=== PATIENT | male | born 1995 | race Caucasian/White ===

== ENCOUNTER → 2020-05-21 13:16 | Outpatient (BNVA) | payer SELFPAY | PROVIDERS: Visit Provider Internal Medicine | DX: Z76.89 Persons encountering health services in other specified circumstances (principal) ==

== ENCOUNTER 2020-11-14 10:37 | Outpatient (REF) | payer OTHER, SELFPAY ==
--- NOTE | ~2020-11-14 | US_ITS ---
EXAMINATION: US ABDOMEN COMPLETE CLINICAL INFORMATION: Left upper quadrant pain. COMPARISON: None TECHNIQUE: Real-time imaging of the abdominal viscera. FINDINGS: PANCREAS: Normal. ABDOMINAL AORTA: The proximal, mid, and distal segments are normal in caliber. INFERIOR VENA CAVA: Visualized portions are normal. LIVER: Normal. The liver is normal in size. The liver contour is normal. Parenchymal echogenicity is normal. No focal hepatic lesion. There is no intrahepatic biliary duct dilatation seen. GALLBLADDER: Normal. The gallbladder is physiologically distended without evidence of stones, sludge, polyps, wall thickening or pericholecystic fluid. COMMON BILE DUCT: Normal in caliber measuring 0.2 cm in diameter. RIGHT KIDNEY: Normal. No hydronephrosis. No renal calculi or focal parenchymal lesions. The kidney measures 11.5 cm in maximum dimension. LEFT KIDNEY: Normal. No hydronephrosis. No renal calculi or focal parenchymal lesions. The kidney measures 11.1 cm in maximum dimension. SPLEEN: Normal. The spleen measures 12.0 cm in maximum dimension. FREE FLUID: None. US/US abdomen complete IMPRESSION: Unremarkable examination.
== END 2020-11-14 10:38 | disposition home or self-care (01) ==
LOC: HO.HMGCX 10:37
PROVIDERS: PCP Registered Nurse; Visit Provider Registered Nurse
DX: R10.12 Left upper quadrant pain (principal)
CPT/HCPCS: 76700

== ENCOUNTER 2021-04-30 06:55 | Outpatient (REF) | payer OTHER, SELFPAY ==
--- NOTE | ~2021-04-30 | CT_ITS ---
EXAMINATION: CT ABDOMEN AND PELVIS WITH CONTRAST CLINICAL INFORMATION: Left upper quadrant pain COMPARISON: Previous abdominal ultrasound October 2020 TECHNIQUE: Multidetector volumetric images were obtained from the superior aspect of the liver through the pubic symphysis following administration 85 mL of Omnipaque 350 intravenous contrast. Sagittal and coronal reformatted images were obtained on the technologist's workstation. Oral contrast: Yes This CT examination was performed using dose optimization techniques as appropriate, variously including the following: *Automated exposure control *Adjustment of mA and/or kV according to patient size (this includes techniques or standardized protocols for targeted exams where dose is matched to indication/reason for exam; i.e. extremities or head) *Use of iterative reconstruction technique DLP: 421 mGy-cm FINDINGS: LUNG BASES: The visualized lung bases are unremarkable. LIVER, GALLBLADDER, AND BILIARY TREE: The liver is normal in size, shape, and attenuation. No focal hepatic lesion or biliary ductal dilatation is present. The gallbladder is unremarkable with no evidence of radiopaque gallstones, gallbladder wall thickening, or obvious pericholecystic inflammatory changes. PANCREAS: Unremarkable. SPLEEN: Unremarkable. ADRENAL GLANDS: Unremarkable. KIDNEYS AND URETERS: The kidneys are normal in size, shape, and attenuation. No hydronephrosis, hydroureter, or calculi seen. No perinephric stranding. BLADDER: Unremarkable. GASTROINTESTINAL TRACT: The small and large bowel are unremarkable. The appendix is unremarkable. ABDOMINAL WALL: No significant hernia is appreciated. LYMPH NODES: Normal. VASCULAR: Unremarkable. PELVIC VISCERA: Unremarkable. OSSEOUS STRUCTURES: Unremarkable. CT/CT abdomen pelvis w con IMPRESSION: Unremarkable exam. Fleischner guidelines were followed.
[2021-04-30] MEDS: iohexoL 350 MG/ML 100 ML INFUS..BTL IV (09:03)
== END 2021-04-30 06:56 | disposition home or self-care (01) ==
LOC: HO.CT 06:55
PROVIDERS: PCP Internal Medicine; Visit Provider Internal Medicine
DX: R10.12 Left upper quadrant pain (principal)
CPT/HCPCS: 74177; Q9967

== ENCOUNTER 2022-04-17 12:15 | Day surgery (SDC) | payer OTHER, SELFPAY ==
--- NOTE | 2022-04-16 11:30 | P.CONAN_ITS ---
Documented by User: Daya Zelaya NP 04/16/22 11:30 HPI - Anesthesia Eval Consult details Narrative: 27yo M for Colonoscopy [facility] Surgical History Surgical History (Updated 04/16/22 @ 08:18 by Terri Henderson, EVA) Hx of hand surgery Social History Social History Patient Tobacco Use Status: Never used Tobacco Are you DNR?: No Advance Directives: No Advance Directives Information Provided: Yes Meds Allergies Allergy/AdvReac Type Severity Reaction Status Date / Time No Known Allergies Allergy Verified 04/16/22 08:17 Home Medications Medication Instructions Recorded Confirmed Last Taken Type No Known Home Meds 04/16/22 04/16/22 Unknown History Exam Exam Date and Time: April 16, 2022 1130 Assessment and Plan Assessment Anesthesia Assessment: Chart Reviewed Documented by User: Rosemary Shafer MD 04/17/22 12:38 [facility] Family History Family history of problems with anesthesia: No Surgical History Surgical History (Updated 04/16/22 @ 08:18 by Terri Henderson RN) Hx of hand surgery History of Problems with Anesthesia: No Social History Social History Patient Tobacco Use Status: Never used Tobacco Are you DNR?: No Advance Directives: No Advance Directives Information Provided: Yes Meds Allergies Allergy/AdvReac Type Severity Reaction Status Date / Time No Known Allergies Allergy Verified 04/16/22 08:17 Home Medications Medication Instructions Recorded Confirmed Last Taken Type No Known Home Meds 04/16/22 04/16/22 Unknown History Exam Airway Mallampati Class: II TM Dist: >3cm Neck ROM: Full Heart: rrr Lungs: cta Assessment and Plan Assessment Anesthesia Assessment: Anesthesia Plan Discussed Final Anesthetic Review Family History of Problems with Anesthesia: No History of Problems with Anesthesia: No NPO: Yes ASA Class: I Final Preanesthetic Review: No Changes in Pt Med Stat, Meds/Allgs Chart Reviewed and Consent Obtained/Reviewed Patient Risk: Intermediate Procedure Risk: Intermediate Anesthetic Plan Anesthetic Plan: MAC: Disposition: Standard PACU
[2022-04-17 06:33] VITALS: BMI 27.7
[2022-04-17 12:25] VITALS: BP 134/91; PULSE 78; RESP 16; TEMP 36.6; O2SAT 99
[2022-04-17] MEDS: Lactated Ringers 1,000 ML 100 ML IVCONT (12:36)
[2022-04-17 13:33] VITALS: BP 95/51; PULSE 86; RESP 16; TEMP 36.3; O2SAT 98
--- NOTE | 2022-04-17 13:36 | PM.OP ---
Brief Operative Note Date of Service: 04/17/22 Pre-op diagnosis: Change in Bowel habits, LLQ abdominal discomfort Post-op diagnosis: same Procedure: Colonoscopy to the cecum and TI Surgeon: Ryne Larry Anesthesia: MAC Was an [employer] Business Analyst used for this Procedure?: No Estimated blood loss (mL): 0 Pathology: none sent Condition: stable Disposition: PACU
[2022-04-17 13:48] VITALS: BP 126/64; PULSE 80; RESP 16; TEMP 36.3; O2SAT 99
--- NOTE | 2022-04-17 23:48 | OP_ITS ---
SURGEON: Ryne Larry MD INDICATIONS: The patient presents for evaluation of change in bowel habits and abdominal discomfort. Full consent has been obtained from him for this, including risks of bleeding and perforation. PREOPERATIVE DIAGNOSIS: Abdominal discomfort and change in bowel habits. POSTOPERATIVE DIAGNOSIS: PROCEDURE PERFORMED: Colonoscopy to the cecum and terminal ileum. ESTIMATED BLOOD LOSS: COMPLICATIONS: ANESTHESIA: Monitored anesthesia care. ASSISTANTS: SPECIMENS: POSTOPERATIVE DIAGNOSES: Abdominal discomfort and change in bowel habits, internal hemorrhoids. DESCRIPTION OF PROCEDURE: The patient was placed in the left lateral decubitus position. The digital rectal exam revealed no abnormalities. The Olympus video pediatric colonoscope was entered into the rectum and advanced easily to the cecum. Once in the cecum, I did identify a normal-appearing cecal pouch with appendiceal orifice and a normal-appearing ileocecal valve. The terminal ileum was cannulated and appeared normal. The scope was withdrawn back in the colon. The entire cecum and ileocecal valve appeared normal. The scope was slowly withdrawn assessing all mucosal surfaces carefully. Preparation was excellent. I did not visualize any sign of polyps, colitis, nor angiodysplasia. I did not appreciate any diverticular disease. In the rectum, scope was retroflexed visualizing small internal hemorrhoids, but no other pathology. The rectal mucosa appeared normal. The scope was straightened and withdrawn from the patient. He tolerated the procedure well and was returned to the recovery area in stable condition. IMPRESSION: Internal hemorrhoids, otherwise normal colonoscopy. PLAN: At this point, the patient has had an extensive workup including CT scan, ultrasound, laboratories and today's colonoscopy. No abnormalities have been found. I have reviewed with him in the past that I do suspect this is a mild irritable bowel syndrome and he should continue his fiber supplement that he takes on a regular basis with plenty of fluids. If he is otherwise stable, he will see me on a p.r.n. basis. He would not need another colonoscopy until age 46 for screening purposes. This has been discussed with his mother. MD SHARI Morillo/MARIANA / [phone] MTDRachel
== END 2022-04-17 14:25 | disposition home or self-care (01) ==
PROVIDERS: PCP Internal Medicine; Visit Provider Internal Medicine
PROC: 0DJD8ZZ Inspection of Lower Intestinal Tract, Via Natural or Artificial Opening Endoscopic (ICD-10-PCS; CPT 45378; principal; 2022-04-17 13:00)
DX: R19.4 Change in bowel habit (principal); K64.8 Other hemorrhoids; R10.9 Unspecified abdominal pain
CPT/HCPCS: 45378; J2250

== ENCOUNTER 2024-07-18 15:18 | Outpatient (REF) | payer SELFPAY ==
--- OUTSIDE RECORDS SUMMARY | 2024-07-18 16:12 | XMS_ITS ---
Author Organization [facility] Address [address] [place] [address] Care Team Providers Care Cloth Cutter Name Role Phone Jeremie Pate MD Primary Care Provider Ryne Mcmullen [phone] ALLERGIES No Known Allergies REASON FOR VISIT Patient presents today for abdominal pain SOCIAL HISTORY Tobacco Use: Social History Observation Description Date Details (start date - stop date) Never Smoker NA - NA Sex Assigned At : Social History Observation Description Sex Assigned At Unknown Tobacco Use/Smoking Question Answer Notes Patient is a nonsmoker Alcohol Screen Question Answer Notes Did you have a drink contain ing alcohol in the past year? Yes How often did you have a dri nk containing alcohol in the past year? 2 to 3 times a week (3 points) How many drinks did you have on a typical day when you were drinking in the past year? 10 or more drinks (4 points) Points 7 Interpretation Positive PROBLEMS Problem Type ICD Code Onset Dates Problem Status W/U Status Risk SNOMED Code Notes Problem IBS (irritable bowel syndrome) (K58.9) Active confirmed Irritable bowel syndrome (70079920) VITAL SIGNS BMI 29.14 kg/m2 07/18/2024 Blood pressure systolic 00 mm Hg 07/18/19 25 Blood pressure diastolic 00 mm Hg 025 Height 74 in 07/18/2024 Weight 227 lbs 07/18/2024 Encounters Encounter Location Date Provider Diagnosis [facility] [address] [place] [address] 07/18/2024 Ryne Larry IBS (irritable bowel syndrome) K58.9 and Left sided abdominal pain R10.9 ASSESSMENTS Encounter Date Diagnosis Assessment Notes Treatment Notes Treatment Clinical Notes 07/18/2024 IBS (irritable bowel syndrome) (ICD-10 - K58.9) Try using 2 Metamucil fiber pills once or twice every day with a lot of water seamus help improve BM regularity Call me if the insurance doesn't cover the antispasmodic prescription Try to decrease alcohol intake, eat more fiber, etc 07/18/2024 Left sided abdominal pain (ICD-10 - R10.9) PLAN OF TREATMENT Treatment Notes Assessment Notes IBS (irritable bowel syndrome) Try using 2 Metamucil fiber pills once or twice every day with a lot of water seamus help improve BM regularity Call me if the insurance doesn't cover the antispasmodic prescription Try to decrease alcohol intake, eat more fiber, etc Pending Test Test Name Order Date CELIAC PANEL #10 07/18/2024 Next Appt Details Follow Up: 2024, Negrito n: Provider Name:Ryne Larry , 02/27/2025 02:10:00 PM, [address] [place] [address], [address], [place], [address],
--- OUTSIDE RECORDS SUMMARY | 2024-07-18 16:12 | XMS_ITS | Patient Health Record ---
Author Organization [facility] Address [address] [place] [address] Care Team Providers Care Ring Conductor Name Role Phone Jeremie Pate MD Primary Care Provider Ryne Mcmullen Unavailable [phone] ALLERGIES No Known Allergies REASON FOR REFERRAL Referring Provider First Name Jeremie Referring Provider Last Name Rio Referring Provider Speciality Internal M edicine Referred Organization [facility] Referred Provider Ryne Larry Referred Address [address] [facility],[place], [place],[address], Referred Provider Specialty Gastroentero logy General Notes Steph Madrigal 025 11:09:27 AM EST > requested an o blue referral from Dr. Pate for visit with Dr. Larry on 07-18-24 [phone] Referral Priority Routine IMMUNIZATIONS Vaccine Route Administration Date Status Comme nts Influenza Unknown 01/29/2021 Administered SOCIAL HISTORY Tobacco Use: Social History Observation [...] W/U Status Risk SNOMED Code Notes Problem Change in bowel habits (R19.4) Active confirmed Change in bowel habit (90625565) Problem Left sided abdominal pain (R10.9) Active confirmed Left sided abdominal pain (620957086) Problem IBS (irritable bowel syndrome) (K58.9) Active confirmed Irritable bowel syndrome (61475774) VITAL SIGNS Blood pressure diastolic 00 mm Hg 07/18/2024 Height 74 in 07/18/2024 Blood pressure systolic 00 mm Hg 07/18/2024 Weight 227 lbs 07/18/2024 BMI 29.14 kg/m2 07/18/2024 Encounters Encounter Location Date Provider Diagnosis [facility] [address] [place] [address] 07/18/2024 Ryne Larry IBS (irritable bowel syndrome) [...] pain (ICD-10 - R10.9) PLAN OF TREATMENT Pending Test Test Name Order Date CELIAC PANEL #10 07/18/2024 Future Test Test Name Order Date COLONOSCOPY 02/20/2022 Next Appt Details Provider Name:Ryne Larry , 02/27/2025 02:10:00 PM, [address], [address], [place], [address], Insurance Providers Payer Name Payer Address Payer Phone Subscriber Number Group Number Insured Name Patient Relationship to Insured Coverage Start Date Coverage End Date [employer] [address] [place] [address] [id number] MICHELLE ZHONG Self - patient is the insured MEDICAL (GENERAL) HISTORY Medical History History ICD Code Denies AL,DM,CVA,Lung disease,renal dise ase 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
[2024-07-19 19:54] LABS: Immunoglobulin A 362 mg/dL (47-310); Transglutaminase IgA <1.0 U/mL
== END 2024-07-18 15:19 | disposition home or self-care (01) ==
LOC: HO.LAB 15:18
PROVIDERS: PCP Internal Medicine; Visit Provider Internal Medicine
DX: K58.9 Irritable bowel syndrome, unspecified (principal)
CPT/HCPCS: 36415; 82784; 86364

== ENCOUNTER 2024-07-25 14:43 | Outpatient (REF) | payer BC, SELFPAY ==
--- OUTSIDE RECORDS SUMMARY | 2024-07-25 18:25 | XMS_ITS | Patient Health Record ---
Author Organization [facility] Address [address] [facility] [address] [place] [address] Care Team Providers Care Construction Craft Laborer Name Role Phone Jeremie Pate MD Primary Care Provider Ryne Mcmullen Unavailable [phone] ALLERGIES No Known Allergies RESULTS Component Value Reference Range Notes Celiac Disease Panel Reviewed date:07/21/2024 05:34:05 PM Interpretation: Performing Lab:[facility], [address] [place] [id number] Notes/Report: Immunoglobulin A 362 47-310 mg/dL THIS TEST WAS PERFORMED AT: [facility] [address] [place] [phone] HARMONY SORIANO MD Transglutaminase IgA <1.0 Value Interpretation ----- <15.0 Antibody not detected > or = 15.0 Antibody detected Celiac Disease Panel Interp. SEE NOTE No serological evidence of celiac disease. Total serum IgA is elevated. Consider mucosal inflammatory conditions or underlying gammopathy. REASON FOR REFERRAL Referring Provider First Name Jeremie Referring Provider Last Name Rio Referring Provider Speciality Internal M edicine Referred Organization [facility] Referred Provider Ryne Larry Referred Address [address] [facility] [facility],[place],[address], Referred Provider Specialty Gastroentero logy General Notes Steph Madrigal 025 11:09:27 AM EST > requested an o blue referral from Dr. Pate for visit with Dr. Larry on 07-18-24 [phone] Referral Priority Routine MEDICATIONS Medication SIG (Take, Route, Frequency, Duration) Notes Start Date End Date Status Hyoscyamine Sulfate 0.125 MG 1 tablet on the tongue and allow to dissolve as needed Orally every 4 to 6 hours as needed for abdominal discomfort/bloating for 30 days 07/19/2024 Active IMMUNIZATIONS Vaccine Route Administration Date Status Comme [...] (R19.4) Active confirmed Change in bowel habit (66470123) Problem IBS (irritable bowel syndrome) (K58.9) Active confirmed Irritable bowel syndrome (65841273) Problem Left sided abdominal pain (R10.9) Active confirmed Left sided abdominal pain (451326827) VITAL SIGNS Blood pressure diastolic 00 mm Hg 07/18/2024 Height 74 in 07/18/2024 Blood pressure systolic 00 mm Hg 07/18/2024 Weight 227 lbs 07/18/2024 BMI 29.14 kg/m2 07/18/2024 Encounters Encounter Location Date Provider Diagnosis [facility] [address] [facility] [address] [place] [phone] 07/18/2024 Ryne Larry IBS (irritable bowel syndrome) [...] Name:Ryne Larry , 02/27/2025 02:10:00 PM, [address], [address], [place], [address], Insurance Providers Payer Name Payer Address Payer Phone Subscriber Number Group Number Insured Name Patient Relationship to Insured Coverage Start Date Coverage End Date [facility] [employer] PROFESSIONAL CLAIMS [address] [place] [address] [id number] OSBORNE Self - patient is the insured MEDICAL (GENERAL) HISTORY Medical History History ICD Code Denies ID,DM,CVA,Lung disease,renal dise ase 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
--- OUTSIDE RECORDS SUMMARY | 2024-07-25 18:25 | XMS_ITS ---
Author Organization [facility] Address [address] [place] [address] Care Team Providers Care A And P Technician Name Role Phone Jeremie Pate MD Primary Care Provider Ryne Mcmullen [phone] ALLERGIES No Known Allergies REASON FOR VISIT Patient presents today for abdominal pain MEDICATIONS Medication SIG (Take, Route, Frequency, Duration) Notes Start Date End Date Status Hyoscyamine Sulfate 0.125 MG 1 tablet on the tongue and allow to dissolve as needed Orally every 4 to 6 hours as needed for abdominal discomfort/bloating for 30 days 07/19/2024 Active SOCIAL HISTORY Tobacco Use: Social History Observation [...] syndrome) (K58.9) Active confirmed Irritable bowel syndrome (44153410) VITAL SIGNS Blood pressure systolic 00 mm Hg 07/18/19 25 Blood pressure diastolic 00 mm Hg 025 Height 74 in 07/18/2024 Weight 227 lbs 07/18/2024 BMI 29.14 kg/m2 07/18/2024 Encounters Encounter Location Date Provider Diagnosis [facility] [address] [place] [address] 07/18/2024 Ryne Larry IBS (irritable bowel syndrome) [...] pain (ICD-10 - R10.9) PLAN OF TREATMENT Medication Medication Name Sig Start Date Stop Date Notes Hyoscyamine Sulfate 0.125 MG 1 tablet on the tongue and allow to dissolve as needed Orally every 4 to 6 hours as needed for abdominal discomfort/bloating for 30 days 07/19/2024 Treatment Notes Assessment Notes IBS (irritable bowel [...] 02:10:00 PM, [address], [address], [place], [address],
[2024-07-26 09:43] LABS: Immunoglobulin A 336 mg/dL (47-310)
[2024-07-28 22:23] LABS: Endomysial IgA Antibody Negative (Negative)
[2024-07-29 13:33] LABS: Gliadin Deamidated IgA Ab 1.5 U/mL; Gliadin Deamidated IgG Ab <1.0 U/mL; Transglutaminase Ab IgG <1.0 U/mL; Transglutaminase IgA <1.0 U/mL
== END 2024-07-25 14:44 | disposition home or self-care (01) ==
LOC: HO.LAB 14:43
PROVIDERS: Visit Provider Internal Medicine
DX: K58.9 Irritable bowel syndrome, unspecified (principal)
CPT/HCPCS: 36415; 82784; 86231; 86258; 86364